=== PATIENT | female | born 1985 | race Asian ===

== ENCOUNTER 2019-02-08 17:13 | Observation (INO) | payer OTHER ==
[~2019-02-08] VITALS: Ht 167.6 cm; Wt 98.9 kg
== END 2019-02-08 18:12 | disposition home or self-care (01) ==
LOC: SPU 17:13
PROVIDERS: ADMIT Obstetrics & Gynecology; ATTEND Obstetrics & Gynecology
DX: O24.410 Gestational diabetes mellitus in pregnancy, diet controlled (principal); O34.211 Maternal care for low transverse scar from previous cesarean delivery; Z3A.37 37 weeks gestation of pregnancy
CPT/HCPCS: 59025; G0378

== ENCOUNTER 2019-02-19 05:15 | Inpatient (IN) | payer OTHER ==
[2019-02-18 15:52] LABS: BASOPHILS % (AUTO) 0.3 % (0.0-2.0); EOSINOPHILS # (AUTO) 0.2 K/uL (0.0-0.4); EOSINOPHILS % (AUTO) 1.7 % (0.0-4.0); HEMATOCRIT 37.5 % (36-48); HEMOGLOBIN 12.3 g/dL (12.0-16.0); LYMPHOCYTES # (AUTO) 2.7 K/uL (1.0-5.5); LYMPHOCYTES % (AUTO) 25.9 % (20.5-51.5); MEAN CORPUSCULAR HEMOGLOBIN 29 pg (27-31); MEAN CORPUSCULAR HGB CONC 33 % (32-36); MEAN CORPUSCULAR VOLUME 87 fL (79.0-98.0); MONOCYTES # (AUTO) 0.9 K/uL (0.0-1.0); MONOCYTES % (AUTO) 8.5 % (1.7-9.3); NEUTROPHILS # (AUTO) 6.8 K/uL (1.8-7.7); NEUTROPHILS % (AUTO) 63.6 % (40.0-70.0); PLATELET COUNT (AUTO) 315 K/uL (130-430); WHITE BLOOD COUNT (AUTO) 10.6 K/uL (4.8-10.8)
[2019-02-18 16:09] LABS: BILIRUBIN,URINE NEGATIVE (NEGATIVE); BLOOD, URINE NEGATIVE (NEGATIVE); CLARITY/URINE SL HAZY (CLEAR); COLOR,URINE YELLOW (YELLOW); GLUCOSE,URINE NEGATIVE (NEGATIVE); KETONES,URINE NEGATIVE (NEGATIVE); LEUKOCYTE ESTERASE ,URINE NEGATIVE (NEGATIVE); NITRITE, URINE NEGATIVE (NEGATIVE); PH,URINE 6.5 (5.0-8.0); PROTEIN URINE NEGATIVE (NEGATIVE); UROBILINOGEN,URINE 0.2 (0.2-1.0)
[~2019-02-19] VITALS: Ht 167.6 cm; Wt 101.6 kg
[2019-02-19] MEDS ORDERED: LR 1,000 ML IV ONE (07:31)
[2019-02-19 07:35] VITALS: BP_SYST 114
[2019-02-19] MEDS ORDERED: CEFAZOLIN 2 GM IVPB PREMIX 50 ML IV ONE ×2 (07:45→08:55)
[2019-02-19] MEDS ORDERED: ePHEDrine sulfate 50 MG/ML VIAL IM ONE (08:55)
[2019-02-19] MEDS ORDERED: KETOROLAC TROMETHAMINE 30 MG VIAL IVP ONE (08:55)
[2019-02-19] MEDS ORDERED: NS IRRIG SOLN 1000 ML IR ONE (08:55)
[2019-02-19] MEDS ORDERED: LR 1,000 ML IV.SOLN IV ONE (08:55)
[2019-02-19] MEDS ORDERED: BUPIVACAINE /DEX PF 0.75% SPINAL 2 ML AMP INJ ONE (08:55)
[2019-02-19] MEDS ORDERED: ONDANSETRON HCL 4 MG/2 ML VIAL IVP ONE (08:55)
[2019-02-19] MEDS ORDERED: MORPHINE SULFATE 10MG/10ML PF AMP EP ONE (08:55)
[2019-02-19] MEDS ORDERED: OXYTOCIN/0.9 % SODIUM CHLORIDE 1,000 ML IV ONE ×2 (09:01→10:15)
[2019-02-19] MEDS ORDERED: LR 1,000 ML IV SCH (09:01)
[2019-02-19] MEDS ORDERED: ANUSOL 1 EA SUPP.RECT (PREPARATION H) RC PRN (09:15)
[2019-02-19] MEDS ORDERED: MEASLES,MUMPS&RUBELLA VACC/PF 12500 UNIT/0.5 ML VIAL SUBQ PRN (09:15)
[2019-02-19] MEDS ORDERED: ACETAMINOPHEN 325 MG TABLET PO PRN (09:15)
[2019-02-19] MEDS ORDERED: BISACODYL 10 MG/SUPPOSITORY RC PRN (09:15)
[2019-02-19] MEDS ORDERED: LANOLIN 7 GM OINT. TP PRN (09:15)
[2019-02-19] MEDS ORDERED: RHO(D) IMMUNE GLOBULIN/MALTOSE 1500 UNITS/1.3 ML (WINHRO) IM PRN (09:15)
[2019-02-19] MEDS ORDERED: TEMAZEPAM 15 MG CAPSULE PO PRN (09:15)
[2019-02-19] MEDS ORDERED: HYDROcodone/ACETAMIN 5-325 MG TAB (NORCO/ VICODIN) PO PRN ×2 (09:15)
[2019-02-19] MEDS ORDERED: SENNOSIDES/DOCUSATE SODIUM 1 TAB TABLET(SENOKOT-S) PO PRN (09:15)
[2019-02-19] MEDS ORDERED: SIMETHICONE 80 MG TAB.CHEW PO PRN (09:15)
[2019-02-19] MEDS ORDERED: MORPHINE SULFATE 10MG/10ML PF AMP SP SCH (09:30)
[2019-02-19] MEDS ORDERED: ONDANSETRON HCL 4 MG/2 ML VIAL IVP PRN (09:30)
[2019-02-19] MEDS ORDERED: NALBUPHINE HCL 10 MG/ML AMP IVP PRN (09:30)
[2019-02-19] MEDS ORDERED: fentaNYL CITRATE/PF 100 MCG/2 ML AMP IVP PRN ×2 (09:30)
[2019-02-19] MEDS ORDERED: KETOROLAC TROMETHAMINE 60 MG/2 ML VIAL IM PRN (09:30)
[2019-02-19] MEDS ORDERED: NALOXONE HCL 0.4 MG/ML AMP (NARCAN) IVP PRN ×2 (09:30)
[2019-02-19] MEDS ORDERED: DIPHENHYDRAMINE INJ 50 MG/ML VIAL IVP PRN (09:30)
[2019-02-19 11:18] VITALS: BP_SYST 117
[2019-02-20] MEDS: IBUPROFEN 600 MG TABLET PO SCH ×3 (07:04→17:36)
[2019-02-20 07:09] LABS: BASOPHILS % (AUTO) 0.4 % (0.0-2.0); EOSINOPHILS # (AUTO) 0.1 K/uL (0.0-0.4); EOSINOPHILS % (AUTO) 1.1 % (0.0-4.0); HEMATOCRIT 33.7 % (36-48); HEMOGLOBIN 11.2 g/dL (12.0-16.0); LYMPHOCYTES # (AUTO) 2.5 K/uL (1.0-5.5); LYMPHOCYTES % (AUTO) 22.3 % (20.5-51.5); MEAN CORPUSCULAR HEMOGLOBIN 29 pg (27-31); MEAN CORPUSCULAR HGB CONC 33 % (32-36); MEAN CORPUSCULAR VOLUME 87 fL (79.0-98.0); MONOCYTES % (AUTO) 9.3 % (1.7-9.3); NEUTROPHILS # (AUTO) 7.4 K/uL (1.8-7.7); NEUTROPHILS % (AUTO) 66.9 % (40.0-70.0); PLATELET COUNT (AUTO) 279 K/uL (130-430); RED BLOOD CELL COUNT(AUTO) 3.89 MIL/uL (4.2-6.2); RED CELL DISTRIBUTION WIDTH 13.9 % (9.0-15.0); WHITE BLOOD COUNT (AUTO) 11.1 K/uL (4.8-10.8)
[2019-02-20] MEDS: DOCUSATE SODIUM 100 MG CAPSULE PO PRN ×2 (12:00→20:43)
[2019-02-21] MEDS: IBUPROFEN 600 MG TABLET PO SCH ×3 (00:18→12:28)
[2019-02-21] MEDS: DOCUSATE SODIUM 100 MG CAPSULE PO PRN (12:28)
== END 2019-02-21 14:15 | disposition home or self-care (01) | DRG 785 ==
LOC: SPU 07:09
PROVIDERS: ADMIT Obstetrics & Gynecology; ATTEND Obstetrics & Gynecology
PROC: 0UB70ZZ Excision of Bilateral Fallopian Tubes, Open Approach (ICD-10-PCS; 2019-02-19)
PROC: 10D00Z1 Extraction of Products of Conception, Low, Open Approach (ICD-10-PCS; principal; 2019-02-19 09:00)
DX: O24.420 Gestational diabetes mellitus in childbirth, diet controlled (principal); O34.211 Maternal care for low transverse scar from previous cesarean delivery; Z30.2 Encounter for sterilization; Z37.0 Single live birth; Z3A.39 39 weeks gestation of pregnancy
CPT/HCPCS: 36415; 81003; 82962; 85025; 86592; 86886; 86900; 86901; 87086; 87536; 88302; J0690; J1885; J2274; J2405; J2590; J3490; J7120